=== PATIENT | female | born 1970 | race Hispanic/Latino ===

== ENCOUNTER 2022-03-23 09:45 | Day surgery (SDC) | payer BC ==
--- NOTE | 2022-03-23 09:37 | RAD REPORT ---
EXAM DESCRIPTION: Talib Blair (2 Views)03/23/2022 9:27 am CLINICAL HISTORY: Preop for cholecystectomy COMPARISON: 2012 FINDINGS: The lungs appear clear of acute infiltrate. The heart is normal size IMPRESSION: No acute abnormalities displayed
[2022-03-23 10:16] LABS: Absolute Lymphocytes (CBC) 1.6 K/uL (0.7-4.9); Hematocrit 43.4 % (36.0-45.0); Lymphocytes % 24.5 % (15.3-44.8); MCV 85.3 fL (80-100); MPV 8.8 fL (7.6-11.3); RBC Red Blood Cell Count 5.09 M/uL (3.86-4.86)
[2022-03-23] MEDS ORDERED: Ringers Lactate 1,000 ML IV ONE (10:20)
[2022-03-23 10:27] LABS: ALT/SGPT 28 U/L (12-78); AST/SGOT 15 U/L (15-37); Albumin 3.5 g/dL (3.4-5.0); Alkaline Phosphatase 85 U/L (45-117); Amylase 55 U/L (25-115); BUN Blood Urea Nitrogen 19 mg/dL (7-18); Bicarbonate 30 mmol/L (21-32); Bilirubin Total 0.5 mg/dL (0.2-1.0); Glomerular Filtration Rate 105 ml/min (=/>90); Glucose Level 100 mg/dL (74-106); Lipase 85 U/L (73-393); Potassium 3.8 mmol/L (3.5-5.1); Protein, Total 7.2 g/dL (6.4-8.2); Sodium Level 139 mmol/L (136-145)
[2022-03-23] MEDS ORDERED: ONDANSETRON 4 MG/2 ML VIAL ONE (10:28)
[2022-03-23] MEDS ORDERED: ROCURONIUM 50 MG/5 ML VIAL IV ONE (10:28)
[2022-03-23] MEDS ORDERED: propofoL 200 MG/20 ML VIAL IV ONE (10:28)
[2022-03-23] MEDS ORDERED: MIDAZOLAM HCL 2 MG/2 ML INJ ONE (10:28)
[2022-03-23] MEDS ORDERED: FENTANYL CITR 100 MCG/2 ML ONE ×2 (10:28→11:26)
[2022-03-23] MEDS ORDERED: LIDOCAINE 2% MPF 5 ML VIAL ONE ×2 (10:29→10:32)
[2022-03-23 10:31] LABS: Bilirubin Direct < 0.1 mg/dL (0-0.2)
[2022-03-23] MEDS ORDERED: CIPROFLOXACIN 400mg IV 400 MG/200 ML BAG IV ONE (11:17)
[2022-03-23] MEDS ORDERED: KETOROLAC 30 MG/ML INJ ONE (11:39)
[2022-03-23] MEDS ORDERED: EPHEDRINE SULF 50 MG/ML VIAL ONE (11:49)
[2022-03-23] MEDS ORDERED: GLYCOPYRROLATE 0.2 MG/ML SYR ONE ×2 (12:02→12:15)
[2022-03-23] MEDS ORDERED: NEOSTIGMINE 1 MG/ML -5 ML ONE (12:16)
--- NOTE | 2022-03-23 12:23 | P.BOP ---
Preoperative diagnosis: RUQ abd pain, biliary dyskinesia, cholecystitis Postoperative diagnosis: same, RUQ and RLQ intrabdominal adhesions Primary procedure: 1. Laparoscopic cholecystectomy Secondary procedure: 2. Laparoscopic lysis of adhesions Consultant Technology: Joann Thurston (DOULA) Estimated blood loss: <10cc Specimen: gb Findings: see dicta Anesthesia: General Complications: None Transferred to: Recovery Room Condition: Good
[2022-03-23] MEDS: HYDROMORPHONE HCL 1 MG/ML INJ ONE ×2 (12:46→12:52)
[2022-03-23] MEDS ORDERED: HYDROCODONE/APAP 7.5/325 MG TAB ONE (14:15)
[2022-03-23 16:06] VITALS: BP 105/61; TEMP 97.6; O2SAT 95
--- NOTE | 2022-03-23 19:01 | EKG ---
Test Date: 2022-03-23 Test Time: 09:28:41 Tailings Worker: SINGH MEASUREMENT RESULTS: Intervals: Rate: 57 AR: 158 QRSD: 82 QT: 432 QTc: 420 Valera: P: 47 AR: 158 QRS: 14 T: 60 INTERPRETIVE STATEMENTS: Sinus bradycardia Otherwise normal ECG No previous ECG available for comparison Electronically Signed On 03-23-22 19:00:21 FIELD ARTILL[employer] CREWMEMBER by Ian Steen
--- NOTE | 2022-03-24 00:27 | OP ---
Date of Procedure: 03/23/2022 Surgeon: Michael Berg MD Tradeshow Worker: VENANCIO Soler. Preoperative Diagnoses: Right upper quadrant abdominal pain, cholecystitis, and biliary dyskinesia. Postoperative Diagnoses: Right upper quadrant abdominal pain, cholecystitis, biliary dyskinesia, rig ht upper quadrant and right lower quadrant intraabdominal adhesions. Procedures: 1.Laparoscopic cholecystectomy. 2.Laparoscopic lysis of adhesions. Estimated Blood Loss: Less than 10 cc. Specimen: Gallbladder. Findings: Patient has findings on the gallbladder consistent with cholecystitis, but she also has on the right upper quadrant, intraabdominal adhesions of unknown origin. The bowel seems to be intact in that area. The right lower quadrant and mid abdomen show previous adhesions. Apparently, she had an open appendectomy done in the past and could be the cause for that. These adhesions were removed after we finished the cholecystectomy with the help of LigaSure. Complications: None. Indication: This is a case of a 51-year-old patient who comes to us with abdominal pain mainly in th e right upper quadrant. She had extensive workup done that include also a HIDA scan showing biliary dyskinesia. The benefits, alternatives, and risks of laparoscopic and possible open cholecystectomy were fully explained which include, but are not limited to infection, bleeding, damage to adjacent st ructures, anesthesia complication, choledocholithiasis, bile leak, pancreatitis, SD, and even . She also understands this may not relieve symptoms and she might need more than one surgical interve ntion. She understood and signed a consent. Procedure In Detail: The patient was brought to the operating room and placed in supine position. A nesthesia was done without complication. Abdominal area was prepped and draped in usual sterile fash ion. Marcaine 0.5% was injected for local anesthetic followed by sharp incision of the skin in the i nfraumbilical region. Incision was carried down to fascia, which was opened under direct vision. Pe ritoneum was encountered and opened under direct vision. Vicryl #1 placed inside the fascia. Richard trocar was carefully introduced and pneumoperitoneum was obtained. I placed 3 more trocars, 5 mm ea ch one of them, 1 in the epigastric area and 2 in the right upper quadrant under direct visualization . This allowed me to put a grasper in the fundus of the gallbladder and another grasper in the infun dibulum, retracting the gallbladder in the inferolateral fashion exposing the triangle of Calot and o btaining critical view. Before that I have to mention that patient has multiple adhesions in the rig ht upper quadrant. We are going to address that issue once we get the gallbladder out and also some adhesions found also in the right upper quadrant. Since the patient has pain in the right upper quad rant, I believe it is fair enough to get those adhesions down. They are not supposed to be there, ma y be contributing to her problem. Once we have critical view, I proceeded to identify the cystic barrington t and cystic artery. I put 3 clips proximal, 1 clip distal, and ligation in middle and same was done with the cystic artery. No bile leak. No bleeding. The gallbladder was removed from liver using B ovie cauterizer and removed from abdominal cavity using an Endo Catch through the umbilical incision. The area in the right upper quadrant was once again inspected and the clips were intact, no bleedin g and no bile leak. At that moment I proceeded to the Harmonic scalpel and proceeded to do the adhes ions in the right upper quadrant. There was tenting of the large bowel against the abdominal wall, b ut we were able to remove adhesions without causing any enterotomies. Then also we went to the right lower quadrant where we had the same situation with adhesions pulling the intestines up. We were ab le to release them without causing any enterotomy. This was done with the help of LigaSure. The are a was inspected, no bleeding. At that moment, I proceeded to remove the trocars under direct vision, deflated pneumoperitoneum, closed the fascia with #1 Vicryl, irrigated subcutaneous tissue and close d that with 3-0 chromic and skin in a subcuticular fashion with 3-0 chromic and Steri-Strips on top. Sponge count and instrument counts correct. Patient tolerated the procedure well. Patient was sent to [facility] very in stable condition. HM/MODL Voice ID: [id number] Report ID: [id number]
--- NOTE | 2022-03-24 00:27 | DS ---
Date of Discharge: 03/23/2022 Diagnoses: Cholecystitis, biliary dyskinesia, right upper quadrant abdominal pain, and right upper q uadrant and right lower quadrant intraabdominal adhesions. Procedures: Laparoscopic cholecystectomy and laparoscopic lysis of adhesions. Disposition: Home. Activity: As tolerated. No heavy lifting. Follow Up: In my office in 1 week. Call for appointment on [phone]. Discharge Instructions: Keep area dry for 48 hours, then may shower. Keep Steri-Strip intact. KIARRA/CARA Voice ID: [id number] Report ID: [id number]
== END 2022-03-23 14:30 | disposition home or self-care (01) ==
LOC: OR 09:45
PROVIDERS: ATTEND Surgery
PROC: 0FT44ZZ Resection of Gallbladder, Percutaneous Endoscopic Approach (ICD-10-PCS; principal; 2022-03-23 11:15)
DX: K81.1 Chronic cholecystitis (principal); K66.0 Peritoneal adhesions (postprocedural) (postinfection); K82.8 Other specified diseases of gallbladder; R10.11 Right upper quadrant pain
CPT/HCPCS: 93005; 85025; 80048; 36415; 82150; 80076; 88304; 83690; 71046; 47562; J2704; J2001; J2250; J3010 ×2; J1170; J2710; J7120; J2405; J0744

== ENCOUNTER 2023-12-26 14:15 | Emergency (ER) | payer BC ==
--- OUTSIDE RECORDS SUMMARY | 2023-12-26 14:54 | XMS REPORT | Continuity of Care Document ---
Author Name Unknown Address [address] [facility] [address] [place] [address] [facility] thconnect Address [address] [facility]. [address] [place] [address] Care Team Providers Care Equal Opportunity Specialist Name Role Phone PCP, PATIENT DOES NOT HAVE A Primary Care Physic julio Unavailable Samantha Stratton Attending Clinician UnavailShar Teixeira DO Attending Clinician Mei Hui Attending Clinician [phone] Mei ESPARZA Attending Clinician Unavailable Samantha Stratton Admitting Clinician Unavailrobyn rodriguez Payers Payer Name Policy Type Policy Number Effective Date Expirati on Date Source Allergies, Adverse Reactions, Alerts Allergy Name Allergy Type Status Severity Reaction(s) Onset Date Inactive Date Treating Clinician Comments Source Penicill ins Drug Allergy Active Other - See comments 05-30 00:00: 00 Childhood reaction [facility] PENICILL INS Drug Class Active Low Other-Cmnt 05-30 00:00: 00 [facility] Penicill ins DA Active U 3 00:00: 00 [facility] Penicill ins DA Active U UNKNOWN REACTION A CHILD 3 00:00: 00 [facility] NO KNOWN ALLERGIE S Drug Class Active [facility] Social History Social Habit Start Date Stop Date Quantity Comments Source Sexual orientation U [facility] Sex Assigned At 1970 00:00:00 1970 00:00:00 [facility] Smoking Status Start Date Stop Date Source Tobacco smoking consumption unknown [facility] Medications Ordered Medication Name Filled Medication Name Start Date Stop Date Current Medication? Ordering Clinician Indication Dosage Frequency Signature (SIG) Comments Components Source benzonatate (TESSALON PERLES) capsule 200 mg 05-30 20:45: 00 05-30 20:44 :00 No 200mg 200 mg, Oral, ONCE, 1 dose, On Mon05/30/23 at 1445, АЛЕКСАНДР [facility] ibuprofen (IBU) tablet 600 mg 05-30 20:45: 00 05-30 20:44 :00 No 600mg 600 mg, Oral, ONCE, 1 dose, On Mon05/30/23 at 1445, АЛЕКСАНДР [facility] ondansetron (ZOFRAN-ODT ) disintegrat ing tablet 4 mg 05-30 20:30: 00 05-30 19:39 :00 No 4mg 4 mg, Oral, ONCE, 1 dose, On Mon05/30/23 at 1430, Routine [facility] benzonatate 200 mg capsule 05-30 00:00: 00 Yes [id number] 200mg Take 1 capsule by mouth 3 (three) times daily as needed for Cough for up to 20 doses. [facility] ondansetron 4 mg disintegrat ing tablet 05-30 00:00: 00 Yes [id number] 4mg Take 1 tablet by mouth every 8 (eight) hours as needed for Nausea and Vomiting (N/V). [facility] ibuprofen 600 mg tablet 05-30 00:00: 00 Yes [id number] 600mg Take 1 tablet by mouth every 6 (six) hours as needed for Pain (scale 4-6). [facility] Vital Signs Vital Name Observation Time Observation Value Comments S rosaline Systolic blood pressure 2023-05-30 19:33:00 96 mm[Hg] [facility] Diastolic blood pressure 2023-05-30 19:33:00 69 mm[Hg] [facility] Heart rate 2023-05-30 19:33:00 94 /min General acute hospital Body temperature 2023-05-30 19:33:00 38 [facility] Respiratory rate 2023-05-30 19:33:00 16 /min [facility] Body height 2023-05-30 19:33:00 149.9 cm [facility] Body weight 2023-05-30 19:33:00 79.379 kg [facility] BMI 2023-05-30 19:33:00 35.35 kg/m2 [facility] Oxygen saturation in Arterial blood by Pulse oximetry 2023-05-30 19:33:00 96 /min [facility] Procedures Procedure Date / Time Performed Performing Clinicia n Source RAPID INFLUENZA A/B 2023-05-30 19:39:00 [facility] COVID-19 (ID NOW RAPID TESTING) 2023-05-30 19:39:00 [facility] NOTICE OF PRIVACY PRACTICES 2023-05-30 19:27:38 Doctor Unassigned, [facility] CONSENT/REFUSAL FOR DIAGNOSIS AND TREATMENT 2023-05-30 19:25:37 Doctor Unassigned, [facility] Encounters Start Date/Time End Date/Time Encounter Type Admission Type Attending Clinicians Care Facility Care Department Encounter ID Source 2020-07-15 09:06:46 Inpatient Samantha Chaudhari [facility] [id number] [facility] Benoit camejo [facility] 2023-12-12 08:17:33 2023-12-12 08:17:33 Outpatient [facility] [id number] Chuck Turner 2023-12-11 17:10:14 2023-12-11 17:10:14 Outpatient [facility] [id number] Chuck Turner 2023-07-03 08:34:53 2023-07-03 08:34:53 Outpatient [facility] [id number] Chuck Turner 2023-06-15 14:12:34 2023-06-15 14:12:34 Outpatient [facility] [id number] Chuck Turner 2023-05-30 13:37:00 2023-05-30 14:47:00 Emergency GeeShar Mei Esparza [facility] [id number] [facility] 2023-05-30 13:37:00 2023-05-30 14:47:00 Emergency X Mei ESPARZA [facility] ERT [id number] [facility] Results Test Description Test Time Test Comments Results Result Co mments Source LIPID [id number] 05:05:57* Test Item Value Reference Range Interpretation Comme nts CHOLESTEROL (test code = 2210) 241 MG/DL <200 H TRIGLYCERIDES (test code = 2232) 138 MG/DL <150 HDL CHOLESTEROL (test code = 2220) 54 MG/DL >39 CALC LDL CHOL (test code = 2237) 160 MG/DL <100 H NOTE: CALCULATED LDL IS BASED ON CARLOS A-CHUNG METHOD WHICHINCLUDES ADJUSTABLE TRIGLYCERIDE:VLDL CHOLESTEROL RATIO.THIS FACTOR VARIES BY MEASURED TRIGLYCERIDE AND NON-HDLCHOLESTEROL CONCENTRATIONS WITH INCREASED CALCULATED LDL SEENIN HIGHER TRIGLYCERIDE OR LOWER NON-HDL SPECIMENS. FOR MOREINFORMATION, SEE CLIENT ANNOUNCEMENT AT [email or web address] RISK RATIO LDL/HDL (test code = 2238) 2.96 RATIO <3.22 [id number] 06:48:32* Test Item Value Reference Range Interpretation Comme nts AMYLASE (test code = 2205) 66 U/L 28-100 [id number] 06:48:32* Test Item Value Reference Range Interpretation Comme nts LIPASE (test code = 2058) 18 U/L 13-60 UNLESS OTHERWISE INDICATED, ALL TESTING PERFORMED AT [facility] [address] [place] [id number] PACKING SUPERVISOR: ASHLEY RODRIGUEZ M.D. CLIA NUMBER [id number] [facility] [place]. [id number] COMPREHENSIVE METABOLIC [id number] 05:35:00* Test Item Value Reference Range Interpretation Comme nts GLUCOSE (test code = 7) 85 MG/DL 70-99 BUN (test code = 2207) 7 MG/DL 6-20 CREATININE (test code = 2213) 0.69 MG/DL 0.60-1.30 eGFR (2020 CKD-EPI) (test code = 86592) 104 ML/MIN/1.73 >60 CALC BUN/CREAT (test code = 2234) 10 RATIO 6-28 SODIUM (test code = 2230) 142 MEQ/L 133-146 POTASSIUM (test code = 2227) 3.9 MEQ/L 3.5-5.4 CHLORIDE (test code = 2214) 105 MEQ/L 95-107 CARBON DIOXIDE (test code = 6) 27 MEQ/L 19-31 CALCIUM (test code = 2208) 8.9 MG/DL 8.5-10.5 PROTEIN, TOTAL (test code = 2228) 6.5 G/DL 6.1-8.3 ALBUMIN (test code = 2200) 4.3 G/DL 3.5-5.2 CALC GLOBULIN (test code = 2240) 2.2 G/DL 1.9-3.7 CALC A/G RATIO (test code = 223) 2.0 RATIO 1.0-2.6 BILIRUBIN, TOTAL (test code = 2206) 0.3 MG/DL <=1.2 ALKALINE PHOSPHATASE (test code = 2203) 75 U/L 40-132 AST (test code = 2217) 15 U/L 9-40 ALT (test code = 2219) 17 U/L 5-40 HEMOGLOBIN [id number] 02:57:19* Test Item Value Reference Range Interpretation Comme [facility] HEMOGLOBIN A1c (test code = 44346) 5.7 % 4.2-5.6 H [employer] GUIDELINES FOR HGB A1C: PREDIABETES/INCREASED RISK . . . . . . . 5.7-6.4% DIAGNOSIS OF DIABETES . . . . . . . . . >=6.5% WITH CONFIRMATION OR APPROPRIATE SYMPTOMS NOTE: ASSAY MAY BE AFFECTED BY HEMOGLOBINOPATHIES (SICKLE CELL ANEMIA, S-C DISEASE, OTHERS) OR ARTIFICIALLY LOWERED BY DECREASED RED CELL SURVIVAL (HEMOLYTIC ANEMIAS, BLOOD LOSS, ETC.). CONSIDER ALTERNATE TESTING OR LABORATORY CONSULTATION. CBC W/AUTO DIFF WITH [id number] 01:28:56* Test Item Value Reference Range Interpretation Comme nts WBC (test code = 1001) 6.7 K/UL 3.5-11.0 RBC (test code = 1002) 5.13 M/UL 3.80-5.40 HEMOGLOBIN (test code = 1003) 13.0 G/DL 11.5-15.5 HEMATOCRIT (test code = 1004) 41.6 % 34.0-45.0 MCV (test code = 1005) 81.1 fL 80.0-99.0 MCH (test code = 1006) 25.3 PG 25.0-33.0 MCHC (test code = 1007) 31.3 G/DL 31.0-36.0 RDW (test code = 1038) 14.4 % 11.5-15.0 NEUTROPHILS (test code = 1008) 64.0 % LYMPHOCYTES (test code = 1010) 26.6 % MONOCYTES (test code = 1011) 7.1 % EOSINOPHILS (test code = 1012) 1.5 % BASOPHILS (test code = 1013) 0.4 % IMMATURE GRANULOCYTES (test code = 1036) 0.4 % NUCLEATED RBCS (test code = 1065) 0.0 /100 WBC'S See_Comment [Automated [employer]] The system which generated this result transmitted reference range: 0.0. The reference range was not used to interpret this result as normal/abnormal. PLATELET COUNT (test code = 1015) 344 K/UL 130-400 ABSOLUTE NEUTROPHILS (test code = 1066) 4.30 K/UL 1.50-7.50 ABSOLUTE LYMPHOCYTES (test code = 1067) 1.79 K/UL 1.00-4.00 ABSOLUTE MONOCYTES (test code = 1068) 0.48 K/UL 0.20-1.00 ABSOLUTE EOSINOPHILS (test code = 1040) 0.10 K/UL 0.00-0.50 ABSOLUTE BASOPHILS (test code = 1069) 0.03 K/UL 0.00-0.20 ABS IMMATURE GRANULOCYTES (test code = 1020) 0.03 K/UL 0.00-0.10 ABS NUCLEATED RBCS (test code = 91091) 0.00 K/UL 0.00-0.11 CULTURE, [id number] 10:40:05SPECIMEN NUMBER: [id number] CULTURE, URINE SPECIMEN NUMBER: [id number] SPECIMEN COMMENT: URINE SOURCE: URINE REPORT STATUS: FINAL FINAL REPORT: 09/26/2021 50-100,000 CFU/ML MIXED UROGENITAL GUANAKO COMPREHENSIVE METABOLIC [id number] 05:03:33* Test Item Value Reference Range Interpretation Comme nts GLUCOSE (test code = 7) 78 MG/DL 70-99 BUN (test code = 220) 16 MG/DL 6-20 CREATININE (test code = 2213) 0.70 MG/DL 0.60-1.30 eGFR (2020 CKD-EPI) (test code = 09109) 105 ML/MIN/1.73 >60 CALC BUN/CREAT (test code = 2235) 23 RATIO 6-28 SODIUM (test code = 223) 144 MEQ/L 133-146 POTASSIUM (test code = 2228) 4.3 MEQ/L 3.5-5.4 CHLORIDE (test code = 2215) 105 MEQ/L 95-107 CARBON DIOXIDE (test code = 2206) 28 MEQ/L 19-31 CALCIUM (test code = 2209) 9.6 MG/DL 8.5-10.5 PROTEIN, TOTAL (test code = 2229) 7.1 G/DL 6.1-8.3 ALBUMIN (test code = 2201) 4.5 G/DL 3.5-5.2 CALC GLOBULIN (test code = 2240) 2.6 G/DL 1.9-3.7 CALC A/G RATIO (test code = 2234) 1.7 RATIO 1.0-2.6 BILIRUBIN, TOTAL (test code = 2207) 0.3 MG/DL See_Comment [Automated me ssage] The system which generated this result transmitted reference range: <=1.2. The reference range was not used to interpret this result as normal/abnormal. ALKALINE PHOSPHATASE (test code = 2204) 91 U/L 40-130 AST (test code = 2218) 17 U/L 9-40 ALT (test code = 2219) 15 U/L 5-40 UNLESS OTHERWISE INDICATED, [facility] [address] [place] [id number] PACKING SUPERVISOR: JIHAN MARIEE M.D. CLIA NUMBER [id number] [facility] [place]. [id number] CBC W/AUTO DIFF WITH [id number] 03:46:41* Test Item Value Reference Range Interpretation Comme nts WBC (test code = 1001) 8.7 K/UL 3.5-11.0 RBC (test code = 1002) 4.97 M/UL 3.80-5.40 HEMOGLOBIN (test code = 1003) 14.5 G/DL 11.5-15.5 HEMATOCRIT (test code = 1004) 41.5 % 34.0-45.0 MCV (test code = 1005) 83.5 fL 80.0-99.0 MCH (test code = 1006) 29.2 PG 25.0-33.0 MCHC (test code = 1007) 34.9 G/DL 31.0-36.0 RDW (test code = 1038) 13.3 % 11.5-15.0 NEUTROPHILS (test code = 1008) 69.9 % LYMPHOCYTES (test code = 1010) 20.5 % MONOCYTES (test code = 1011) 7.0 % EOSINOPHILS (test code = 1012) 1.5 % BASOPHILS (test code = 1013) 0.5 % IMMATURE GRANULOCYTES (test code = 1036) 0.6 % NUCLEATED RBCS (test code = 1065) 0.0 /100 WBC'S See_Comment [Automated messa ge] The system which generated this result transmitted reference range: 0.0. The reference range was not used to interpret this result as normal/abnormal. PLATELET COUNT (test code = 1015) 291 K/UL 130-400 ABSOLUTE NEUTROPHILS (test code = 1066) 6.06 K/UL 1.50-7.50 ABSOLUTE LYMPHOCYTES (test code = 1067) 1.78 K/UL 1.00-4.00 ABSOLUTE MONOCYTES (test code = 1068) 0.61 K/UL 0.20-1.00 ABSOLUTE EOSINOPHILS (test code = 1040) 0.13 K/UL 0.00-0.50 ABSOLUTE BASOPHILS (test code = 1069) 0.04 K/UL 0.00-0.20 ABS IMMATURE GRANULOCYTES (test code = 1020) 0.05 K/UL 0.00-0.10 ABS NUCLEATED RBCS (test code = 27142) 0.04 K/UL 0.00-0.11 [id number] 06:37:00* Test Item Value Reference Range Interpretation Comme nts GLUBED (test code = GLUBED) 101 mg/dL 70-110 N COVID 19 Asymptomatic IH [id number] 12:34:00* Test Item Value Reference Range Interpretation Comme nts COVID 19 Asymptomatic IH AG (test code = COVNONPUIAG) NEGATIVE NEGATIVE Negative results should be treated as presumptive and ifinconsistent with clinical signs and symptoms, or necessaryfor patient management, should be tested with an alternativemolecular assay. Negative results do not preclude [id number]-[id number] and should not be used as the sole basis forpatient management decisions. Negative results should beconsidered in the context of a patient's recent exposures,history, presence of clinical signs and symptoms consistentwith COVID-19. Specimen comments: If not done this admission Notes Date/Time Note Provider Source 2023-05-30 14:45:00 PT D/C home. GCS15, VS stable. Given D/C paperwork. Pt ambulatory at time of discharge. Pt educated on med usage, follow up care, s/s worsening condition, need for hydration. Pt verbalized understanding. Pt ambulated from ED in [facility] 2023-05-30 13:32:08 Pt states "I feel weak, achy and flu symptoms" [facility] 2023-05-30 13:29:38 Called for patient from waiting room, no response. [facility] 2020-07-17 06:53:00 [id number] [address] PATIENT NAME: ASHOK HERNANDEZ ADMIT DATE: 07/17/20 ACCOUNT NO: [id number] DISCHARGE DATE: ROOM NO: REPORT TYPE: ENDOSCOPY REPORT DATE OF : [birth year] AGE: 49 SEX: F ADMITTING PHYSICIAN: ATTENDING PHYSICIAN:Samantha Stratton MD [facility] Patient Name: Ashok Hernandez Procedure Date: 07/17/2020 6:53 AM Date of : 1970 Admit Type: Outpatient Age: 49 Gender: Female Attending MD: Samantha Stratton MD Procedure: Colonoscopy Indications: Screening for colorectal malignant neoplasm Providers: Samantha Stratton MD (Doctor) Referring MD: Requesting Provider: Medicines: General Anesthesia Procedure: Pre-Anesthesia Assessment: - Prior to the procedure, a History and Physical was performed, and patient medications and allergies were reviewed. The patient's tolerance of previous anesthesia was also reviewed. The risks and benefits of the procedure and the sedation options and risks were discussed with the patient. All questions were answered, and informed consent was obtained. Prior Anticoagulants: The patient has taken no previous anticoagulant or antiplatelet agents. ASA Grade Assessment: II - A patient with mild systemic disease. After reviewing the risks and benefits, the patient was deemed in satisfactory condition to undergo the procedure. After I obtained informed consent, the scope was passed under direct vision. Throughout the procedure, the patient's blood pressure, pulse, and oxygen saturations were monitored continuously. The [id number] Colonoscope was introduced through the anus and advanced to the cecum, identified by appendiceal orifice and ileocecal valve. The colonoscopy was performed without difficulty. The patient tolerated the procedure well. The quality of the bowel preparation was good. Findings: The perianal and digital rectal examinations were normal. Pertinent PATIENT NAME: ASHOK HERNANDEZ negatives include normal sphincter tone. A few small and large-mouthed diverticula were found in the sigmoid colon, descending colon and splenic flexure. There was no evidence of diverticular bleeding. The exam was otherwise without abnormality. Complications: No immediate complications. Estimated Blood Loss: Estimated blood loss: none. Impression: - Mild diverticulosis in the sigmoid colon, in the descending colon and at the splenic flexure. There was no evidence of diverticular bleeding. - The examination was otherwise normal. - No specimens collected. Recommendation: - Repeat colonoscopy in 5 years for surveillance. Procedure Code(s): --- Professional --- 50857, Colonoscopy, flexible; diagnostic, including collection of specimen(s) by brushing or washing, when performed (separate procedure) CPT copyright 2018 [employer]. All rights reserved. The codes documented in this report are preliminary and upon calender operator helper review may be revised to meet current compliance requirements. Samantha Stratton MD Samantha Stratton MD 07/17/2020 7:37:56 AM This report has been signed electronically. Number of Addenda: 0 Note Initiated On: 07/17/2020 6:53 AM Provation {[id number]}.pdf ProVation FT PDF at 0738 PATIENT NAME: ASHOK HERNANDEZ [facility] 2020-07-15 11:55:[address] [place] [address] ELECTROCARDIOGRAM Patient: ASHOK HERNANDEZ Unit #: [id number] Sex/Age: F 49 : 70 Admit Date: Location: [facility] Physician: Samantha Stratton MD Room/Bed: Order: [id number] Test Reason : PREOP Test Date/Time Stamp: MonJul 15 2020 11:55:43 Blood Pressure : / mmHG Vent. Rate : 065 BPM Atrial Rate : 065 BPM P-R Int : 162 ms QRS Dur : 082 ms QT Int : 374 ms P-R-T Axes : 043 -07 024 degrees QTc Int : 388 ms Normal sinus rhythm Cannot rule out Anterior infarct (cited on or before 15-JUL-2020) Abnormal ECG When compared with ECG of 15-JUL-2020 11:55, (Unconfirmed) Serial changes of evolving Anterior infarct present Confirmed by JOSE GUADALUPE EVANS MD ([id number]) on 07/16/2020 1:42:20 PM Referred By: Samantha Stratton Confirmed by:JOSE GUADALUPE EVANS MD at 1342 dd/t: 07/15/20 1155 [facility]
[2023-12-26 15:06] LABS: Absolute Lymphocytes (CBC) 1.1 K/uL (0.7-4.9); Absolute Monocytes 0.8 K/uL (0.1-1.3); Absolute Neutrophil 8.5 K/uL (1.8-8.0); Basophils % 0.1 % (0-1.3); Eosinophils % 0.2 % (0-4.4); Hematocrit 48.1 % (36.0-45.0); Hemoglobin 15.4 g/dL (12.0-15.0); Lymphocytes % 10.8 % (15.3-44.8); MCV 84.4 fL (80-100); MPV 9.1 fL (7.6-11.3); Monocytes % 7.5 % (3.3-12.3); Neutrophils % 81.4 % (41.7-73.7); Platelets 410 thou/uL (152-406); Red Cell Distribution Width 16.9 % (12.1-15.2)
[2023-12-26 15:20] LABS: Specific Gravity > 1.030 (1.005-1.030); Urine Bacteria None Seen /HPF (<20); Urine Bilirubin NEGATIVE (Negative); Urine Blood Negative (Negative); Urine Clarity Extremely Turbid (Clear); Urine Color Yellow (Yellow); Urine Culture Reflex Order NOT NEEDED; Urine Glucose NEGATIVE (Negative); Urine Ketones 4+ (Over) (Negative); Urine Microscopic Reflex YN ORDER UMIC; Urine Mucus 2+ /HPF (None Seen); Urine Nitrite NEGATIVE (Negative); Urine Protein 2+ (Negative); Urine RBC <5 /HPF (None Seen); Urine Urobilinogen 1+ (Normal); Urine WBC <5 /HPF (<5); Urine Yeast (Budding) Trace /HPF (None Seen); Urine pH 6.5 (5.0-7.0)
[2023-12-26 15:26] LABS: Albumin 3.5 g/dL (3.4-5.0); Albumin/Globulin Ratio 0.8 (1.1-1.8); Anion Gap 16.1 mEq/L (5.0-15.0); Bilirubin Total 0.6 mg/dL (0.2-1.0); Globulin 4.3 g/dL (2.3-3.5); Potassium 3.1 mEq/L (3.5-5.1); Protein, Total 7.8 g/dL (6.4-8.2)
[2023-12-26] MEDS ORDERED: ONDANSETRON 4 MG/2 ML VIAL ONE (16:08)
[2023-12-26] MEDS ORDERED: NA CHLORIDE 0.9% 1,000 ML ONE (16:08)
[2023-12-26] MEDS ORDERED: MORPHINE 4 MG/ML SYR ONE ×2 (16:22→17:34)
--- NOTE | 2023-12-26 17:59 | RAD REPORT ---
EXAM DESCRIPTION: CT - Abdomen Pelvis W Contrast - 12/26/2023 5:10 pm CLINICAL HISTORY: 2 weeks s/p gastric bypass, vomiting;Abd pain COMPARISON: Abdomen Pelvis W Contrast dated 02/09/2022 TECHNIQUE: Thin cut axial CT imaging of the abdomen and pelvis was performed following intravenous a dministration of iodinated contrast. Multiplanar reformats were generated and reviewed. All CT scans are performed using dose optimization technique as appropriate and may include automated exposure control or mA/KV adjustment according to patient size. FINDINGS: No suspicious findings in the lung bases. The liver, spleen, adrenal glands, and pancreas show no suspicious findings. Gallbladder was surgical ly removed. Symmetric renal function is seen with no hydronephrosis or suspicious renal mass. Sequelae of Kamala-en-Y gastric bypass. Marked fluid distention with air-fluid levels involving the exc luded portion of the stomach and extending along the duodenum and proximal jejunum to the level of th e jejunojejunostomy in the left upper quadrant, although the anastomosis with the upstream limb appea rs patent at that level, see axial image 34. Decompressed small bowel along the efferent limb. No seg mental bowel wall thickening. No free air, free fluid or inflammatory stranding. No hernia, mass or b ulky lymphadenopathy. The urinary bladder is without significant finding. No suspicious bony findings. IMPRESSION: Marked fluid distention with air-fluid levels involving the excluded portion of the stom ach and extending along the duodenum and proximal jejunum to the level of the jejunojejunostomy, with decompressed small bowel along the afferent limb. Findings are concerning for efferent loop obstruct ion, probably complete, less likely partial. The findings were communicated to Dr Corbin on 12/26/2023 at 17:55 hours.
--- NOTE | 2023-12-26 18:05 | EDPHYS ---
Physician Documentation [facility] Name: Idania Hernandez Age: 53 yrs Sex: Female : 1970 Arrival Date: 12/26/2023 Time: 14:15 Bed 11 Private MD: ED Physician Tyler Corbin HPI: 12/25 14:49 This 53 yrs old Female presents to ER via Ambulatory with complaints of rn Gastricbypass surgery two weeks ago, Vomiting. 14:49 The patient presents to the emergency department with vomiting, abdominal pain. Onset: rn The symptoms/episode began/occurred 10 day(s) ago. Possible causes: Patient had a gastric bypass surgery performed in [place] 10 days ago. The symptoms are aggravated by P.o. intake, movement. The symptoms are alleviated by nothing. Associated signs and symptoms: Pertinent positives: abdominal pain, Pertinent negatives: fever, GI bleeding. Severity of symptoms: At their worst the symptoms were moderate in the emergency department the symptoms have improved. 53-year-old female with past medical history of diverticulitis, depression presents to the emergency department complaining of vomiting. Patient states that she had a gastric bypass surgery performed in [place] 10 days ago and has had persistent nausea, vomiting, and abdominal discomfort since the surgery and now feels very dehydrated. She states that she has been unable to progress her diet and is still unable to hold down water and medication without vomiting. Patient additionally states that she feels she is developing a UTI and reports burning with urination for the past day. Denies fevers, chills, syncope, chest pain, shortness of breath.. PROGRAM MANAGEMENT MANAGER: 18:26 LMP N/A - Post-menopause, Not me1 Historical: - Allergies: 14:38 PENICILLINS; db - PMHx: 14:38 depressive disorder; Diverticulitis; db - PSHx: 14:38 GASTRIC BYPASS; db - Immunization history:: Adult Immunizations unknown. - Infectious Disease History:: Denies. - Social history:: Smoking status: Patient denies any tobacco usage or history of. ROS: 15:02 Constitutional: Negative for fever, chills. Cardiovascular: Negative for chest pain, rn palpitations, and edema, Respiratory: Negative for shortness of breath, cough, wheezing, and pleuritic chest pain, Skin: Negative for injury, rash, and discoloration, Neuro: Negative for numbness, tingling. 15:06 Constitutional: Positive for rn 15:06 Abdomen/GI: Positive for abdominal pain, nausea, vomiting, Negative for constipation, dysphagia, hematemesis, black/tarry stool, 15:06 Back: Negative for radiated pain, 15:06 : Positive for urinary symptoms, burning with urination, Negative for hematuria, bladder incontinence, 15:06 Skin: 15:06 Skin: Negative for cellulitis, erythema, rash, swelling, ulceration, 15:06 All other systems are negative, Exam: 15:09 Constitutional: This is a well developed, well nourished patient who is awake and rn alert but appears uncomfortable. Cardiovascular: Regular rate and rhythm. No pulse deficits. Respiratory: No increased work of breathing, no retractions or nasal flaring. Abdomen/GI: soft, + epigastric tenderness, no rebound or distension Vital Signs: 14:35 BP 130 / 74; Pulse 103; Resp 18; Temp 98.5; Pulse Ox 96% ; Weight 72.57 kg; Height 4 db ft. 11 in. ; 16:30 BP 131 / 75; Pulse 85; Resp 16; Pulse Ox 97% on R/A; me1 17:42 BP 148 / 76; Pulse 96; Resp 16; Pulse Ox 100% on R/A; me1 18:22 BP 161 / 96; Pulse 99; Resp 16; Pulse Ox 97% on R/A; me1 19:11 BP 135 / 92; Pulse 94; Resp 15; Pulse Ox 97% on R/A; me1 14:35 Body Mass Index 32.32 (72.57 kg, 149.86 cm) db MDM: 14:24 Patient medically screened. rn 17:59 Differential diagnosis: Nonspecific abd pain, volvulus, obstruction, adhesions, rn complications. 18:00 Data reviewed: vital signs, nurses notes, lab test result(s), radiologic studies, CT rn scan, and as a result, I will admit patient. Consideration of Admission/Observation Patient was admitted/placed on observation. Escalation of care including admission/observation considered. 18:01 Care significantly affected by the following chronic conditions:. Counseling: I had a rn detailed discussion with the patient and/or guardian regarding the historical points, exam findings, and any diagnostic results supporting the discharge/admit diagnosis, lab results, radiology results, the need for further work-up and treatment in the hospital, the need to transfer to another facility, for higher level of care, [facility] does not immediately have the required specialist. Response to treatment: the patient's symptoms have mildly improved after treatment, and as a result, I will admit patient. ED course: Patient accepted for transfer to [facility], accepted by bariatric surgery. They requested lactated ringer bolus. Patient overall doing better and no further emesis here.. 12/25 14:48 Order name: CBC with Diff; Complete Time: 15:12 rn 12/25 14:48 Order name: CMP; Complete Time: 15:27 rn 12/25 14:48 Order name: Lipase; Complete Time: 15:27 rn 12/25 14:48 Order name: Urinalysis w/ reflexes; Complete Time: 15:27 rn 12/25 14:48 Order name: CT Abd/Pelvis - IV Contrast Only; Complete Time: 18:04 rn 12/25 14:48 Order name: IV Saline Lock; Complete Time: 15:02 rn 12/25 14:48 Order name: Labs collected and sent; Complete Time: 15:02 rn Administered Medications: 16:14 Drug: NS 0.9% IV 1000 ml IV at 1 bolus Per protocol; 1000 mL bolus Route: IV; Rate: 1 db bolus; Site: left antecubital; 18:22 Follow up: Response: No adverse reaction; IV Status: Completed infusion; IV Intake: me1 1000ml 16:14 Drug: Ondansetron IVP 4 mg IVP once; over 2 minutes Route: IVP; Site: left antecubital; db 16:57 Follow up: Response: No adverse reaction; Nausea is decreased me1 16:28 Drug: morphine IVP or IV 4 mg IVP once over 4 mins Route: IVP; Infused Over: 4 mins; me1 Site: left antecubital; 16:57 Follow up: Response: No adverse reaction; Pain is decreased me1 17:35 Drug: morphine IVP or IV 4 mg IVP once over 4 mins Route: IVP; Infused Over: 4 mins; me1 Site: left antecubital; 18:12 Follow up: Response: No adverse reaction; Pain is unchanged, physician notified me1 18:21 Drug: Lactated Ringers Solution IV 1000 ml IV at 1 bolus bolus Route: IV; Rate: 1 me1 bolus; Site: left antecubital; 19:15 Follow up: IV Status: Infusion continued upon transfer me1 18:21 Drug: HYDROmorphone IVP 1 mg IVP once Route: IVP; Site: left antecubital; me1 19:14 Follow up: Response: No adverse reaction; Pain is decreased me1 Disposition Summary: 12/26/23 18:04 Transfer Ordered Notes: Transfer Location: [facility] rn Reason: Higher level of care rn Condition: Stable rn Problem: new rn Symptoms: have improved rn Accepting Physician: (12/26/23 19:19) me1 Diagnosis - Other intestinal obstruction rn Forms: - Medication Reconciliation Form rn - SBAR form rn Signatures: Dispatcher [employer] Tyler Cole MD MD rn Benton, Danielle, RN RN db Eddleman, Michelle, RN RN me1 Corrections: (The following items were deleted from the chart) 16:58 15:09 Constitutional: This is a well developed, well nourished patient who is awake and rn alert but appears uncomfortable. rn 19:19 18:04 rn me1
--- NOTE | 2023-12-26 18:05 | ER ---
Nurse's Notes [facility] Name: Idania Hernandez Age: 53 yrs Sex: Female : 1970 Arrival Date: 12/26/2023 Time: 14:15 Bed 11 Private MD: Diagnosis: Other intestinal obstruction Presentation: 12/25 14:35 Chief complaint: Patient states: VOMITING X 2 WEEKS POST GASTRIC BYPASS SURGERY. db DIARRHEA AND VOMITING STATES HAD SURGERY 2 WEEKS AGO IN [place]. TODAY STARTED FEELING BURNING WITH URINATION. Coronavirus screen: Client denies travel out of the [place] in the last 14 days. At this time, the client does not indicate any symptoms associated with coronavirus-19. Ebola Screen: Patient negative for fever greater than or equal to 101.5 degrees Fahrenheit, and additional compatible Ebola Virus Disease symptoms Patient denies exposure to infectious person. No symptoms or risks identified at this time. Patient reports travel to Ebola-affected area in the 21 days before illness onset. Patient reports having traveled to: [place]. 14:35 Method Of Arrival: Ambulatory db 14:38 Initial Sepsis Screen: Does the patient meet any 2 criteria? No. Patient's initial db sepsis screen is negative. Does the patient have a suspected source of infection? No. Patient's initial sepsis screen is negative. Risk Assessment: Do you want to hurt yourself or someone else? Patient reports no desire to harm self or others. Onset of symptoms was December 26, 2023. 14:38 Acuity: KIRILL 3 db Triage Assessment: 14:38 General: Appears in no apparent distress. uncomfortable, Behavior is calm, cooperative. db Pain: Complains of pain in abdomen. Neuro: Level of Consciousness is awake, alert, obeys commands, Oriented to person, place, time, situation. GI: Reports lower abdominal pain, upper abdominal pain, diarrhea, nausea, vomiting. FAMILY DENTIST: 18:26 LMP N/A - Post-menopause, Not me1 Historical: - Allergies: 14:38 PENICILLINS; db - PMHx: 14:38 depressive disorder; Diverticulitis; db - PSHx: 14:38 GASTRIC BYPASS; db - Immunization history:: Adult Immunizations unknown. - Infectious Disease History:: Denies. - Social history:: Smoking status: Patient denies any tobacco usage or history of. Screenin:53 [facility] ED Fall Risk Assessment (Adult) History of falling in the last 3 months, me1 including since admission No falls in past 3 months (0 pts) Confusion or Disorientation No (0 pts) Intoxicated or Sedated No (0 pts) Impaired Gait No (0 pts) Mobility Assist Device Used No (0 pt) Altered Elimination No (0 pt) Score/Fall Risk Level 0 - 2 = Low Risk Maintained a safe environment, Provided non-skid footwear, Hourly rounding (assess needs \T\ fall precautionary measures) done. Abuse screen: Denies threats or abuse. Nutritional screening: No deficits noted. Tuberculosis screening: No symptoms or risk factors identified. Assessment: 16:53 General: Appears uncomfortable, ill, well groomed, well developed, well nourished, me1 Behavior is calm, cooperative, appropriate for age, Reports having gastric bypass surgery 10 days ago in [place] and has been vomiting since. Cannot hold down water, unable to advance diet as she was told to and yesterday she started having burning with urination. Pain: Complains of pain in abdomen Pain does not radiate. Pain currently is 8 out of 10 on a pain scale. Quality of pain is described as crampy, Pain began suddenly, 10 days ago Is continuous. Neuro: Level of Consciousness is awake, alert, obeys commands, Oriented to person, place, time, situation, Appropriate for age. Cardiovascular: Patient's skin is warm and dry. Respiratory: Airway is patent Respiratory effort is even, unlabored, Respiratory pattern is regular, symmetrical. GI: Reports nausea, vomiting. GI: Abdomen is round. : Reports burning with urination, since yesterday. EENT: No signs and/or symptoms were reported regarding the EENT system. Derm: Skin is intact, is healthy with good turgor, Skin is pink, warm \T\ dry. Musculoskeletal: No signs and/or symptoms reported regarding the musculoskeletal system. Vital Signs: 14:35 BP 130 / 74; Pulse 103; Resp 18; Temp 98.5; Pulse Ox 96% ; Weight 72.57 kg; Height 4 db ft. 11 in. ; 16:30 BP 131 / 75; Pulse 85; Resp 16; Pulse Ox 97% on R/A; me1 17:42 BP 148 / 76; Pulse 96; Resp 16; Pulse Ox 100% on R/A; me1 18:22 BP 161 / 96; Pulse 99; Resp 16; Pulse Ox 97% on R/A; me1 19:11 BP 135 / 92; Pulse 94; Resp 15; Pulse Ox 97% on R/A; me1 14:35 Body Mass Index 32.32 (72.57 kg, 149.86 cm) db ED Course: 14:17 Patient arrived in ED. im 14:24 Tyler Corbin MD is Attending Physician. rn 14:40 Triage completed. db 14:40 Arm band placed on Patient placed in waiting room. db 15:02 CBC with Diff Sent. bc6 15:02 CMP Sent. bc6 15:02 Lipase Sent. bc6 15:02 Urinalysis w/ reflexes Sent. bc6 15:02 Initial lab(s) drawn, by me, sent to lab. Inserted saline lock: 20 gauge in left bc6 antecubital area, using aseptic technique. Blood collected. Flushed with 10 mL NS. 16:19 Patient placed in an exam room, on a stretcher. 1 16:21 Anette Olivo, RN is Primary Nurse. me1 16:53 Patient has correct armband on for positive identification. Bed in low position. Call me1 light in reach. Side rails up X2. Provided Education on: POC. Verbalized understanding. . Client placed on continuous cardiac and pulse oximetry monitoring. NIBP monitoring applied. Pulse ox on. NIBP on. 16:53 No provider procedures requiring assistance completed. me1 17:11 CT Abd/Pelvis - IV Contrast Only In Process Unspecified. EDMS 18:25 pt accepted in transfer to [facility] rm [id number] Valentine admin approval given by ramya Cm. 18:27 Patient transferred, IV remains in place. me1 18:28 ems not able to transport pt for 2 hrs per [facility]. pilot station not able to transport bd due to being on transfer to [facility]. [facility] ems will transport pt. Administered Medications: 16:14 Drug: NS 0.9% IV 1000 ml IV at 1 bolus Per protocol; 1000 mL bolus Route: IV; Rate: 1 db bolus; Site: left antecubital; 18:22 Follow up: Response: No adverse reaction; IV Status: Completed infusion; IV Intake: ri1 1000ml 16:14 Drug: Ondansetron IVP 4 mg IVP once; over 2 minutes Route: IVP; Site: left antecubital; db 16:57 Follow up: Response: No adverse reaction; Nausea is decreased me1 16:28 Drug: morphine IVP or IV 4 mg IVP once over 4 mins Route: IVP; Infused Over: 4 mins; me1 Site: left antecubital; 16:57 Follow up: Response: No adverse reaction; Pain is decreased me1 17:35 Drug: morphine IVP or IV 4 mg IVP once over 4 mins Route: IVP; Infused Over: 4 mins; me1 Site: left antecubital; 18:12 Follow up: Response: No adverse reaction; Pain is unchanged, physician notified me1 18:21 Drug: Lactated Ringers Solution IV 1000 ml IV at 1 bolus bolus Route: IV; Rate: 1 me1 bolus; Site: left antecubital; 19:15 Follow up: IV Status: Infusion continued upon transfer me1 18:21 Drug: HYDROmorphone IVP 1 mg IVP once Route: IVP; Site: left antecubital; me1 19:14 Follow up: Response: No adverse reaction; Pain is decreased me1 Medication: 16:53 VIS not applicable for this client. me1 Intake: 18:22 IV: 1000ml; Total: 1000ml. me1 Outcome: 18:04 ER care complete, transfer ordered by . rn 18:27 Transferred by ground EMS to [facility], Transfer form completed. me1 X-rays sent w/ patient. Note: report called to IRENE Matos 18:27 Condition: stable 18:27 Instructed on the need for transfer, 19:19 Patient left the ED. me1 Signatures: Dispatcher [employer] EDMS Sonya Schmitt Roman, MD MD rn Lewis, Lynsay, RN RN 1 Gisela Craig, RN RN db Santa Padron Itzel im Eddleman, Michelle RN RN me1 Corrections: (The following items were deleted from the chart) 16:49 14:35 Chief complaint: Patient states: VOMITING X 2 WEEKS POST GASTRIC BYPASS SURGERY. me1 DIARRHEA AND VOMITING STATES HAD SURGERY 2 WEEKS AGO IN [place]. TODAY STARTED FEELING BURNING WITH URINATION. db
[2023-12-26] MEDS ORDERED: Ringers Lactate 1,000 ML IV ONE (18:16)
[2023-12-26] MEDS ORDERED: HYDROMORPHONE HCL 1 MG/ML INJ ONE (18:16)
[2023-12-26 19:57] VITALS: TEMP 98.5
[2023-12-26 20:02] VITALS: O2SAT 97
[2023-12-26 20:04] VITALS: BP 135/92
== END 2023-12-26 19:19 | disposition short-term general hospital (02) ==
LOC: ER 14:15
DX: K56.699 Other intestinal obstruction unspecified as to partial versus complete obstruction (principal); Z98.84 Bariatric surgery status
CPT/HCPCS: 85025; 81001; 36415; 83690; 80053; 74177; Q9967; J1170; J2405; J7120; J7030

== ENCOUNTER 2024-01-25 14:22 | Inpatient (IN) | payer BC ==
[2024-01-27] MEDS ORDERED: SODIUM CHLORIDE 0.9% 10ML INJ IV PRN (15:15)
[2024-01-27] MEDS: HYDROCODONE/APAP 5/325 MG TAB PO PRN (15:51)
[2024-01-27] MEDS: [UNRECOGNIZED DRUG - OTHER] IV SCH (16:14)
[2024-01-27] MEDS: ONDANSETRON 4 MG/2 ML VIAL IV PRN (16:43)
[2024-01-27 17:14] LABS: Specific Gravity 1.028 (1.005-1.030); Sqamous Epithelial <5 /HPF (None Seen); Urine Bacteria <20 /HPF (<20); Urine Bilirubin NEGATIVE (Negative); Urine Blood Negative (Negative); Urine Clarity Clear (Clear); Urine Color Yellow (Yellow); Urine Crystals Unidentified Few /HPF (None Seen); Urine Culture Reflex Order NOT NEEDED; Urine Glucose NEGATIVE (Negative); Urine Ketones TRACE (Negative); Urine Micro Reflex YN NO BILL MICROSCOPIC; Urine Mucus Slight /HPF (None Seen); Urine Nitrite NEGATIVE (Negative); Urine Protein TRACE (Negative); Urine RBC <5 /HPF (None Seen); Urine Urobilinogen Normal (Normal); Urine WBC <5 /HPF (<5)
[2024-01-27] MEDS: INSULIN REGULAR (HUMAN) 100 UNIT/ML SQ SCH (17:28)
--- NOTE | 2024-01-27 17:40 | P.HP ---
Certification for Inpatient Patient admitted to: Inpatient With expected LOS: >2 Midnights Practitioner: I am a practitioner with admitting privileges, knowledge of patient current condition, hospital course, and medical plan of care. Services: Services provided to patient in accordance with Admission requirements found in Title 42 Section 412.3 of the Code of Federal Regulations Patient History Date of Service: 01/27/24 Reason for admission: Decreased functional status History of Present Illness: Patient is a 53-year-old woman with a history of appendectomy, cholecystectomy 1 year ago. She underwent gastric bypass surgery about 1 month ago in [place]. She presented to the hospital with a complaint of nausea vomiting, dysuria and unable to keep food down. CT imaging done showed dilated bilopancreatic limb, laparoscopy was done which was converted to open revision of jejunostomy on December 26. Patient postop course was complicated by hypotension. Patient also found to have anastomotic leak, repeat exploratory laparotomy done with repair of the leak and enterotomies, abdominal washout and drain placement. Patient also had several loculated fluid collections in the abdomen and pelvis concerning for abscess which were aspirated by IR. Patient started on TPN with hand roller consultation and treated aggressively with broad-spectrum antibiotics with ID consultation. Antibiotics administered included meropenem, Flagyl, micafungin and later transitioned ceftolozane/tazobactam, flagyl and Zyvox. Patient also developed right upper extremity DVT and pulmonary embolism which is being managed with oral Eliquis. Patient is now tolerating full liquid diet, midline abdominal incision is healing, YARY drains removed. Patient noted to be severely debilitated as a result of a prolonged hospital stay including ICU. She underwent physical therapy and showed improvement in her functional status. Given patient ongoing medical issues that need multidisciplinary management and monitoring recommendations were made for patient to be transferred to inpatient rehab. Allergies Penicillins Adverse Reaction (Intermediate, Verified 01/27/24 14:49) unknown reaction Home Medications: Famotidine 20 mg PO BEDTIME 03/23/22 Pantoprazole [Protonix Tab] 40 mg PO DAILY 03/23/22 buPROPion HCL [Wellbutrin Xl] 300 mg PO BEDTIME 03/23/22 - Past Medical/Surgical History Diabetic: No -: Obesity -: Cholecystectomy -: Appendectomy -: Gastric bypass - Family History Father -: Cancer (Prostate cancer) - Social History Smoking Status: Never smoker Alcohol use: No CD- Drugs: No Place of Residence: Home Review of Systems Other: No recorded fever. Patient reports regular bowel movement. She is complaining of abdominal pain and nausea She denies any headache She denies any shortness of breath She denies any dysuria or increased urinary frequency. Except as documented, all other systems reviewed and negative. Physical Examination - Vital Signs Temperature: 98.1 F Blood Pressure: 140/59 Respirations: 20 Pulse Ox (%): 98 - Physical Exam General: Alert, In no apparent distress, Oriented x3, Obese HEENT: Atraumatic, Mucous membr. moist/pink, EOMI, Sclerae nonicteric Neck: Supple, JVD not distended Respiratory: Clear to auscultation bilaterally, Normal air movement Cardiovascular: No edema, Regular rate/rhythm, Normal S1 S2, No murmurs Capillary refill: <2 Seconds Gastrointestinal: Normal bowel sounds, Soft and benign, Other (Obese abdomen, healing midline surgical, small areas of skin opening, healing trocar wounds) Integumentary: No rashes, No erythema, No cyanosis Neurological: Normal speech, Normal strength at 5/5 x4 extr, Cranial nerves 3-12 intact Lymphatics: No axilla or inguinal lymphadenopathy Other Physical/Emotional Findings: Current Level Of Functioning: Currently, she is dependent for transfers. Dependent with eating, minimum assistance with oral hygiene, toileting needs maximal assistance. Bathing maximal assistance, upper body dressing needs moderate assistance, lower body dressing needs moderate assistance, going from sitting to standing position from bed to the chair needs all needed moderate assistance. Gait, he ambulated 220 feet with a rolling walker and moderate assistance. Assessment and Plan - Plan Rehab And Medical Assessment And Plan: Rehab Diagnosis: ICU myopathy Comorbidities: Decreased mobility, decreased physical functioning, DVT, moderate protein calorie malnutrition, pain, thrombocytopenia, afferent loop syndrome Plan Patient will have physical, and occupational for 3.5 hours, 5 of 7 days. Goals of therapy: pt will perform stand-pivot transfers independently using a RW, ambulate 250' independently using a RW, perform supine to sit transfers independently, perform car transfers independently using a RW, independent with self-care. Medical diagnosis/comorbidities DVT/pulmonary embolus Moderate protein calorie malnutrition Afferent loop syndrome Acute pain Intra-abdominal abscesses s/p drainage. Plan: Will continue Eliquis for DVT and pulmonary embolus. We will continue antibiotics-ceftolozane/tazobactam, flagyl and Zyvox to complete therapy for the intra-abdominal abscesses. Will maintain full liquid diet and supplemental nutrition with TPN. Plan to wean TPN as patient's oral intake improve. May need to curbside consultation with bariatric surgery regarding nutrition during the course of her stay.. Pain would be managed with [place] and fentanyl patch. Constipation will be treated with laxatives and stool softener Continue antihypertensive. Blood sugar will be managed with insulin sliding scale for ongoing TPN Patient will have daily physician evaluation for any ongoing medical problems as listed She will have social service evaluation and management for discharge planning, home equipment, continuing therapy and physician - Advance Directives Does patient have a Living Will: No Does patient have a Durable POA for Healthcare: No
[2024-01-27] MEDS: AA 5%/D20W/ELECTROLYTES-TPN 2,000 ML, Lipids 20% 250 ML with MULTIVITAMINS INJ 10 ML IV SCH (17:42)
[2024-01-27 18:09] VITALS: BMI 35.3
[2024-01-27] MEDS: CYCLOBENZAPRINE 10 MG TAB PO SCH (20:04)
[2024-01-27] MEDS: APIXABAN 5 MG TABLET PO SCH (20:04)
[2024-01-27] MEDS: metroNIDAZOLE 500 MG TABLET PO SCH (20:04)
[2024-01-27] MEDS: LINEZOLID 600 MG TAB PO SCH (20:04)
[2024-01-27] MEDS: PANTOPRAZOLE 40 MG INJ IVP SCH (20:06)
[2024-01-27] MEDS: SODIUM CHLORIDE 0.9% 10ML INJ IV SCH (20:06)
[2024-01-27] MEDS ORDERED: NA CHLORIDE 0.9% 250 ML ONE (22:28)
[2024-01-28 05:55] LABS: Absolute Basophils 0.1 K/uL (0-0.5); Absolute Eosinophils 0.1 K/uL (0-0.5); Absolute Lymphocytes (CBC) 1.1 K/uL (0.7-4.9); Absolute Monocytes 0.6 K/uL (0.1-1.3); Absolute Neutrophil 5.4 K/uL (1.8-8.0); Eosinophils % 0.9 % (0-4.4); Hematocrit 24.1 % (36.0-45.0); Hemoglobin 7.8 g/dL (12.0-15.0); Lymphocytes % 15.7 % (15.3-44.8); MCH 27.7 pg (27.0-35.0); MCHC 32.4 g/dL (32.0-36.0); MCV 85.3 fL (80-100); MPV 7.3 fL (7.6-11.3); Neutrophils % 74.4 % (41.7-73.7); Platelets 510 thou/uL (152-406); RBC Red Blood Cell Count 2.83 M/uL (3.86-4.86); Red Cell Distribution Width 18.3 % (12.1-15.2)
[2024-01-28 06:31] LABS: Albumin 1.7 g/dL (3.4-5.0); Anion Gap 5.8 mEq/L (5.0-15.0); BUN Blood Urea Nitrogen 13 mg/dL (7-18); Bicarbonate 30 mEq/L (21-32); Glucose Level 131 mg/dL (74-106); Magnesium 1.8 mg/dL (1.6-2.4); Potassium 3.8 mEq/L (3.5-5.1); Prealbumin 12.2 mg/dL (20-40); Sodium Level 131 mEq/L (136-145)
[2024-01-28 06:37] LABS: Glomerular Filtration Rate 132 ml/min (=/>90)
[2024-01-28] MEDS ORDERED: APIXABAN 5 MG TABLET PO SCH (08:00)
[2024-01-28] MEDS: [UNRECOGNIZED DRUG - OTHER] IV SCH ×2 (10:28→17:00)
[2024-01-28] MEDS: AA 4.25 %/D5W/ELECTROLYTES 2,000 ML with MULTIVITAMINS INJ 10 ML IV SCH (16:59)
[2024-01-29 05:53] LABS: Absolute Basophils 0.1 K/uL (0-0.5); Absolute Eosinophils 0.1 K/uL (0-0.5); Absolute Lymphocytes (CBC) 1.4 K/uL (0.7-4.9); Absolute Monocytes 0.9 K/uL (0.1-1.3); Absolute Neutrophil 5.8 K/uL (1.8-8.0); Basophils % 0.6 % (0-1.3); Eosinophils % 0.9 % (0-4.4); Hematocrit 21.7 % (36.0-45.0); Hemoglobin 7.3 g/dL (12.0-15.0); Lymphocytes % 16.9 % (15.3-44.8); MCH 28.4 pg (27.0-35.0); MCHC 33.4 g/dL (32.0-36.0); MCV 85.1 fL (80-100); MPV 7.1 fL (7.6-11.3); Monocytes % 10.9 % (3.3-12.3); Neutrophils % 70.7 % (41.7-73.7); Nucleated Red Blood Cells % 0.1 % (0-0); Platelets 582 thou/uL (152-406); RBC Red Blood Cell Count 2.55 M/uL (3.86-4.86); Red Cell Distribution Width 18.6 % (12.1-15.2)
[2024-01-29 06:05] LABS: Anion Gap 7.8 mEq/L (5.0-15.0); Potassium 3.8 mEq/L (3.5-5.1)
[2024-01-29] MEDS: PANTOPRAZOLE 40MG TABLET PO SCH (07:13)
[2024-01-29] MEDS: HYDROCODONE/APAP 5/325 MG TAB PO PRN (09:28)
[2024-01-29] MEDS: GLUCERNA SHAKE 237 ML CAN PO SCH (09:29)
[2024-01-29] MEDS: SCOPOLAMINE HYDROBROMIDE PATCH TD SCH (10:04)
[2024-01-29] MEDS: FERROUS SULFATE 325 MG TAB PO SCH (11:53)
[2024-01-29] MEDS: GABAPENTIN 300 MG CAP PO SCH (11:53)
[2024-01-29] MEDS: FE SULF/FA/VIT B COMP & C TAB PO SCH (11:54)
[2024-01-29] MEDS: ONDANSETRON 4 MG (ODT) TAB PO PRN (13:38)
[2024-01-29] MEDS: CEFTOLOZANE IV SCH (17:30)
[2024-01-29] MEDS: AA 4.25 %/D5W/ELECTROLYTES 2,000 ML, Lipids 20% 250 ML with MULTIVITAMINS INJ 10 ML IV SCH (17:30)
[2024-01-29] MEDS: TAZOBACTAM IV SCH (17:30)
[2024-01-29] MEDS: SODIUM CHLORIDE IV SCH (17:30)
[2024-01-29] MEDS: ENSURE MAX PROTEIN 330 ML LIQUID PO SCH (20:00)
[2024-01-29] MEDS: TRAMADOL HCL 50 MG TAB PO PRN (20:08)
[2024-01-29] MEDS: MAGNESIUM OXIDE 400 MG TAB PO SCH (20:09)
[2024-01-29] MEDS ORDERED: NA CHLORIDE 0.9% 250 ML ONE (20:28)
--- NOTE | 2024-01-30 02:48 | PN ---
Date of Progress Note: 01/29/2024 Time Of Service: 1:10 p.m. Subjective: Ms. Hernandez is resting comfortably in room. No new complaints. Pain is moderate in the s houlders. Pain patches are on both sides. There is diffuse weakness more proximal than distal in th e upper extremities. 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 She did receive extended antibiotics, including cefepime and Zerbaxa. Objective: She denies current fevers or chills. There are mild myalgias and arthralgias, especially in the shoulders. She denies any rash, any psychiatric complaints. No active gastrointestinal or g enitourinary issues. Moderate pain, for which pain medications have been adjusted. Physical Examination: Vital Signs: Blood pressure 131/58, pulse up to 102, respiratory rate is 16 to 18, temperature 96.9, oxygen saturation 97%. Weight 175 pounds, height 4 feet 11 inches, BMI 35.3. General: Ms. Hernandez is resting comfortably in bed in between therapy sessions. HEENT: She is normocephalic, atraumatic. Sclerae anicteric. Oropharynx moist. Neck: Supple. Chest: Clear. Heart: Regular. Extremities: No significant edema, cyanosis, or clubbing. She does have bilateral shoulder pain as she mobilizes especially with a wheelchair. Laboratory Studies: White blood cell count is 8.1; hemoglobin down to 7.3 from 7.8 yesterday; platel ets are 582, likely reactive. It was elevated from 510, yesterday. Sodium 134, potassium 3.8, chlor ting 102, carbon dioxide 28, BUN 13, creatinine 0.28, glucose ranged from 111 to 128. Calcium 8.3, ma gnesium 1.8, albumin 1.7, prealbumin 12.2. Her urinalysis shows trace ketones, 25 esterase, trace pr otein, otherwise unremarkable. X-ray/imaging: No new x-rays or imaging. Current Medications: She is receiving her TPN with the fat emulsion intravenously with multivitamins . Agreed also to Clinimix 4.25/5% solution and bolused at 83 mL an hour. She has [place] 5/325 every 4 hours as needed for severe pain, Eliquis 5 mg twice daily for DVT prophylaxis and stroke risk reduc tion, Flexeril 10 mg 3 times daily, ferrous sulfate 325 mg daily, gabapentin 300 mg twice daily, lido ivonne patch to apply topically daily, Zyvox 600 mg twice daily, magnesium oxide 400 mg twice daily, F lagyl 500 mg 3 times daily, HemocytePlus with breakfast, Zofran 4 mg every 4 hours as needed, Protoni x 40 mg twice daily, Ensure Max Protein 330 mL twice daily, tramadol 50 mg every 6 hours as needed, a nd Zerbaxa 1.5 g 33.3 mL/hour every 8 hours having a total of 100 mL. Progress Made With Physical, Occupational, And Speech Therapy: With physical therapy today, she perf orms nukjoz-ub-ssb transfers. Maximum assistance for truncal assistance. Iya-xl-vfhev transfers wit h contact guard to standby assistance. Once upright, she was able to ambulate 250 feet with contact guard assistance using a rolling walker. She did another 120 feet with contact guard without an assi stive device. She was not ambulating with an assistive device previously and would like to go home w ithout the need for an assistive device. She was able to go up and down 3 steps and descend 2 steps with right-sided handrail when ascending and left-sided handrail when descending. Assessment: Ms. Hernandez is a 53-year-old patient, admitted to the inpatient rehabilitation unit with a diagnosis of critical illness myopathy. She has decreased mobility, decreased physical functioning. She had a prolonged ICU stay with fever, received IV antibiotics and she is on TPN nutrition. She has moderate pain. She has high risk of stroke and deep vein thrombosis. As stated, there is modera te to significant anemia and will have a repeat blood test for hemoglobin and may give a unit of bloo d if hemoglobin is less than 7; currently 7.3. Prior to coming into the hospital, she did receive 1 unit for low hemoglobin. She has iron, ferrous sulfate. She currently has significant reflux as the nurse did report and per the patient, and she will receive Mylanta and Tums. She has Protonix as we ll on board. As noted, she is on antibiotics that will continue. Plan: 1.Continue with physical, occupational, and speech therapy. 2.Continue with all medications as noted above. 3.We will follow hemoglobin and hematocrit in the morning and will transfuse as appropriate. If nee d be, we will do imaging, including CT scan of the abdomen and pelvis to rule out any bleeding if her hemoglobin is dropping. She has no obvious blood in any external areas. CLAUDE/MODDarrell Voice ID: [id number] Report ID: [id number]
[2024-01-30 03:13] LABS: Hemoglobin 10.3 g/dL (12.0-15.0)
[2024-01-30] MEDS: LIDOCAINE 4% PATCH TOP SCH (08:27)
[2024-01-30] MEDS ORDERED: FENTANYL 25 MCG/PATCH TD SCH (09:00)
[2024-01-30] MEDS: AA 4.25 %/D5W/ELECTROLYTES 2,000 ML IV SCH (17:20)
--- NOTE | 2024-01-31 02:15 | PN ---
Date of Progress Note: 01/30/2024 Subjective: Ms. Hernandez is resting comfortably. She is in no significant distress. She is happy so f ar with therapy. Still has significant difficulty with ability to manage nutrition. She has sourav cavazos nutrition on board working to improve to a thickened liquid diet with chopped and minced meat cherry t is under the direction of speech pathology. Subjective: Mild myalgia, arthralgias. No fevers, chills. No rash. No psychiatric issues. No iss ues with genitourinary, gastrointestinal issues. It was noted previously in moderate pain which is i mproving with adjustment of medication. Physical Examination: Vital Signs: Blood pressure 139/71, pulse 97, respiratory rate 18, temperature 97.8, oxygen saturati on 96%. General: Ms. Hernandez is resting in bed. Family at the bedside. HEENT: She is normocephalic, atraumatic. Sclerae anicteric. Oropharynx pink, moist. Neck: Supple. Chest: Clear. Heart: Regular. Extremities: She has proximal lower and upper extremity weakness due to her afferent loop syndrome r elated debility. Medications: Medications have been reviewed. She does have a change in her nutritional supplementat ion per the dietitian and that is noted with the Clinimix E 4.25-5% solution of which she is receivin g at a rate of 83 mL an hour on Monday, Monday, , Monday, and for Monday, Monday, y receiving the electrolyte fat emulsion with multivitamin at 83 mL an hour. She has Eliquis 5 mg tw ice daily, [place] 5/325 every 4 hours as needed, Flexeril 10 mg 3 times daily, ferrous sulfate 325 mg daily, gabapentin 300 mg twice daily which was adjusted to help manage her neuropathic pain, lidocain e patch apply 2 topically daily, she has Zyvox 600 mg twice daily, magnesium oxide 400 mg twice daily , Flagyl 500 mg 3 times daily, Hemocyte-Plus 1 tablet with breakfast, centrum Silver 1 tablet daily, Zofran 4 mg every 4 hours as needed, Protonix 40 mg twice daily, Ensure Max 330 twice lj y, tramadol 50 mg every 6 hours as needed, and Zerbaxa 1.5 g. She has 0.9 normal saline , is receivi ng at 100 cc at 33.33 mL an hour every 8 hours. No new x-rays or imaging. Laboratory Studies: No new laboratory studies except today hemoglobin is now 10.3, hematocrit 31.0. She did have a unit of blood transfused due to low hemoglobin. Today, blood sugars range from 104-142. Progress Made With Physical, Occupational Therapy: Today with physical therapy, she did report to e therapist, she was not feeling very well with therapy. She did work on seated exercises, toe raise s, heel raises, hip flexion, hip extension, abductor, adductor exercises. She was able to, however, later on ambulate 250 feet with contact guard assistance with a rolling walker, then did another 120 feet twice with contact guard assist without an assistive device. She was able to go up and down 10 steps twice with bilateral handrails with contact guard assistance. Wvxnd-yu-nhotx transfers done wi contact guard assistance. With occupational therapy, she focused on donning and doffing socks, de monstrated that and was able to complete tasks with minimum assistance using a shoehorn sh oes on with independence. Toileting, she is able to wash her buttocks, but did have limited trunk ro tation, needed assistance to wipe thoroughly. Independent managing clothes and toileting. Ms. Hernandez is making good progress with her physical and occupational therapy. She is working on triston ng adjustments and is working with speech to help with swallowing and to improve her capacity to retu rn to an oral diet. Assessment: Ms. Hernandez is a 53-year-old patient in rehabilitation unit with critical illness myopathy . She has afferent loop syndrome. She has parenteral nutrition. She has significant dysarthria, dy sphagia. She is continuing with IV antibiotics and TPN as noted. The involved with Infec tious Disease. She did have a unit of blood, increased her hemoglobin significantly. She has iron a nd in terms of ferrous sulfate and Hemocyte-Plus on board. She has reflux medication which has impro kaya her reflux symptoms. Plan: 1.She will continue with physical, occupational, and speech therapy. 2.Continue with all medications as noted above for comorbid conditions. 3.She does have the need for speech and speech therapy will be involved in helping her with swallowi ng, improving her diet, and helping her to return to her oral diet. Comorbidities That Are Impacting Rehabilitation: Currently she has a parenteral nutrition that is st ill ongoing. The goal is to be able to transfer her back to oral diet prior to her being able to be ready for discharge and she will continue therapy via Home Health, this is the plan. AROLDO Voice ID: [id number] Report ID: [id number]
[2024-01-31] MEDS: MULTIVITAMIN TAB PO SCH (07:41)
[2024-02-01 05:25] LABS: Absolute Eosinophils 0.1 K/uL (0-0.5); Absolute Monocytes 0.9 K/uL (0.1-1.3); Absolute Neutrophil 5.2 K/uL (1.8-8.0); Basophils % 0.5 % (0-1.3); Eosinophils % 1.5 % (0-4.4); Hematocrit 25.5 % (36.0-45.0); Hemoglobin 8.6 g/dL (12.0-15.0); MCH 29.2 pg (27.0-35.0); MCHC 33.6 g/dL (32.0-36.0); MCV 86.8 fL (80-100); MPV 6.9 fL (7.6-11.3); Monocytes % 12.1 % (3.3-12.3); Neutrophils % 71.9 % (41.7-73.7); Nucleated Red Blood Cells % 0.2 % (0-0); Platelets 554 thou/uL (152-406); RBC Red Blood Cell Count 2.93 M/uL (3.86-4.86); Red Cell Distribution Width 18.8 % (12.1-15.2)
[2024-02-01 05:43] LABS: Albumin 1.9 g/dL (3.4-5.0); Anion Gap 7.9 mEq/L (5.0-15.0); Magnesium 1.9 mg/dL (1.6-2.4); Potassium 3.9 mEq/L (3.5-5.1); Prealbumin 13.6 mg/dL (20-40)
--- NOTE | 2024-02-01 14:52 | RAD REPORT ---
EXAMINATION: CT ABDOMEN AND PELVIS UROGRAM WITHOUT AND WITH CONTRAST CLINICAL INDICATION: R/O Abscess TECHNIQUE: CT abdomen and pelvis was performed, before and after the administration of IV contrast, a s per department protocol. Axial, sagittal and coronal reconstructions were obtained. One or more of the following dose reduction techniques were used: Automated exposure control, adjustment of the m A and/or kV according to patient size, and/or iterative reconstruction. Unless otherwise specified, incidental findings do not require dedicated imaging follow-up. COMPARISON: 12/26/2023 FINDINGS: LOWER CHEST: Moderate opacities in both lung bases likely atelectasis. LIVER: Normal in size and contour. No focal lesion. No intra or extrahepatic biliary tree dilatation suspected. Cholecystectomy. PANCREAS: No mass, ductal dilation, or neptali-pancreatic fluid. SPLEEN: Normal size. No focal lesion. ADRENALS: Normal; no mass. KIDNEYS AND URETERS: Normal size and contour. No hydronephrosis or hydroureter. URINARY BLADDER: Normal in appearance. No suspicious mass or stone. GASTROINTESTINAL TRACT: No evidence of bowel obstruction, free air, significant free fluid or abscess . Postoperative changes are seen in the left upper quadrant. No distention of bowel in this region. APPENDIX: Normal appendix. LYMPH NODES: No lymphadenopathy. REPRODUCTIVE ORGANS: No pathologic process. MUSCULOSKELETAL: No acute or suspicious osseous abnormality. ADDITIONAL FINDINGS: Fluid and air collection is seen anterior abdominal wall subcutaneous fat superf icial to the anterior abdominal fascia measuring 4.7 x 2.0 cm. This collection is of indeterminate sterility. Collection is best visualized on image 66/105. IMPRESSION: Triangular-shaped midline subcutaneous air and fluid collection superficial to the anterior abdominal wall fascia is of indeterminate sterility. Postsurgical changes involving the stomach and small bowel in the left upper quadrant is noted withou t evidence of obstruction or abscess. Mild inflammatory changes in the omental fat are present.
--- NOTE | 2024-02-01 16:17 | CON ---
History Of Present Illness: This is a 53-year-old female I was consulted for evaluation of antibioti cs and abdominal abscess management. The patient denies any headache, nausea, vomiting, chest pain. The patient is having abdominal discomfort for which she is on pain medication. Currently, on Zerba xa and Flagyl for multidrug-resistant pseudomonas infection. The patient denies any other problems a t this time. No diarrhea. Had a bowel movement earlier today. The patient had gastric bypass surge ry, which got complicated with abdominal abscess and patient had a prolonged ICU hospitalization. YARY drains have been removed before transferring patient to rehab facility for total rehab. The patient is also currently getting TPN. Past Medical History: Cholecystectomy, appendectomy, gastric bypass, morbid obesity. Social History: Nonsmoker, nondrinker. Family History: Noncontributory. Medications: Zerbaxa, TPN, Flagyl, Zyvox. See MAR for other medications. Allergies: PENICILLIN. Review of Systems: 10-point review was performed. Physical Examination: General: This is a 53-year-old female, lying in bed, not in any acute cardiopulmonary distress. Vital Signs: Temperature 97, pulse 95, respiration 18, blood pressure 136/67. HEENT: Unremarkable. Neck: Supple. Lungs: Basal crackles. Heart: S1, S2. Regular. Abdomen: Soft. Bowel sounds present. Tenderness in the right lower quadrant noted. Extremities: No edema. Laboratory Data: Shows WBC 7.3, hemoglobin 8.6, platelets 556. Chemistry shows BUN of 14, creatinin e 0.2. Urine cultures, no growth. Assessment And Plan: This is a 53-year-old female with significant history of gastric bypass and abd ominal abscess formation after complication from surgery. The patient had a prolonged ICU admission. Currently on Zerbaxa, Flagyl, and linezolid. Continue current treatment as advised by Infectious D yina and then can be switched to oral antibiotic after CT scan is showing no signs of abscess. Rec ommend to get a CT scan with oral contrast. Monitor signs of infection with WBC and fever trend. Thank you for consult. NF/MODL Voice ID: [id number] Report ID: [id number]
[2024-02-01] MEDS: AA 4.25 %/D5W/ELECTROLYTES 2,000 ML IV SCH (17:30)
--- NOTE | 2024-02-01 21:32 | PN ---
Date of Progress Note: 02/01/2024 Time Of Service: 1:00 p.m. Subjective: Ms. Hernandez is resting comfortably in bed. Said pain is better. She is interested in ora l feeding and would like the IV feedings to be discontinued. This was discussed with Dr. Beltran and the bag hanger and the plan is to decrease by half the parental feeding. The patient said she does not like hospital food, but will have her family bring 3 meals a day and will be documented by the [facility] staff. Otherwise, she has no new complaints. Review of Systems: No significant fevers, nausea, vomiting, myalgias, arthralgias, or rash. Physical Examination: Vital Signs: Blood pressure 136/67, pulse 93, respiratory rate 17, temperature 97.2, oxygen saturati on 93%. Weight 175 pounds, height 4 feet 11 inches, BMI 35.3. General: Ms. Idania Hernandez is resting comfortably in her bed. HEENT: She is normocephalic, atraumatic. Sclerae anicteric. Oropharynx is moist. Neck: Supple. Chest: Clear. Heart: Regular. Extremities: Show no significant edema or cyanosis. She does have the parenteral nutrition ongoing, was decreased by 1/2 and her feedings will be now mos tly orally. She will have the bag hanger provide information with recommendations for a more appro priate oral diet to maintain good nutrition. She will have repeat pre-albumin and may be able to com pletely stop differential nutrition and switch to oral feedings. Laboratory Studies: White blood cell count 7.3, hemoglobin 8.6, platelets 554. Sodium 135, potassiu m 3.9, chloride 103, carbon dioxide 28, BUN 14, creatinine 0.25. Her glucose ranged from 94 to 125, calcium 8.5. Magnesium 1.9. Albumin 1.9, prealbumin 13.6. Note, her IV antibiotics, which are continuing will be switched over to Flagyl and levofloxacin to co ntinue for 14 days. She does have antibiotics for multidrug resistant bacteria. She continues Eliqu is 5 mg twice daily for a DVT. She continues [place] 7.5/325 every 4 hours for significant pain. Jimmy n, continue with parenteral nutrition. She has Flexeril 10 mg 3 times daily, ferrous sulfate 325 mg daily, gabapentin 300 mg twice daily, lidocaine patch apply topically to daily Zyvox 600 mg twice jay ly, magnesium oxide 400 mg twice daily. She will be on the Flagyl 500 mg 3 times daily, Centrum Silv er 1 tablet daily, Hemocyte Plus 1 tablet daily, Zofran 4 mg every 4 hours as needed, Protonix 40 mg twice daily, Ensure Max 330 mg twice daily, tramadol 50 mg every 6 hours, and Zerbaxa 1.5 g every 8 h ours intravenously. Progress Made With Physical And Occupational Therapy: Today with physical therapy, she ambulated 135 feet twice with a rolling walker and contact guard assistance. With occupational therapy, performed [id number]-[id number]-[id number] transfers, standby assistance; supine to sit transfers, supervision; supervision for ba thing, upper and lower body dressing, donning and doffing of footwear. She is not followed by Speech . She is advancing her diet has no issues with swallowing, but she did have a bedside swallow evalua tion was found to be intact. She did not require any further treatment by Speech Therapy. Assessment And Plan: Ms. Hernandez is a 53-year-old patient in the rehabilitation unit with afferent loo p syndrome. She is on multidrug resistant antibiotics. She has some issues. She is actually receiv ing parenteral nutrition, but is switching over to oral feeding as she is able to tolerate food. She reports not liking hospital food and family planned to bring 3 meals per day and she is able to tole rate. She will continue all comorbid condition medications. Plan: Continue with physical and occupational therapy 3 hours a day, 5 of 7 days a week. She will c ontinue with Zerbaxa 1.5 g every 8 hours IV, tramadol as scheduled daily and will be p.r.n. as well. Continue Ensure Max. Continue Zofran, Centrum, Hemocyte, Flagyl, Zyvox, lidocaine patch, gabapentin , ferrous sulfate, Flexeril, Eliquis, [place], and cut the parenteral . Comorbidities That Are Impacting Rehabilitation: She is on parenteral nutrition and multiple IV anti biotics. IV antibiotic should be completed prior to discharge. She will be also off parenteral nutrition, and on the oral feeding gatito or to discharge. CLAUDE/CARA Voice ID: [id number] Report ID: [id number]
[2024-02-02 05:19] LABS: Absolute Eosinophils 0.1 K/uL (0-0.5); Absolute Lymphocytes (CBC) 0.9 K/uL (0.7-4.9); Absolute Monocytes 0.7 K/uL (0.1-1.3); Absolute Neutrophil 5.6 K/uL (1.8-8.0); Basophils % 0.4 % (0-1.3); Eosinophils % 1.1 % (0-4.4); Hematocrit 25.4 % (36.0-45.0); Hemoglobin 8.5 g/dL (12.0-15.0); Lymphocytes % 12.6 % (15.3-44.8); MCH 29.2 pg (27.0-35.0); MCHC 33.6 g/dL (32.0-36.0); MCV 86.9 fL (80-100); MPV 6.9 fL (7.6-11.3); Monocytes % 9.6 % (3.3-12.3); Neutrophils % 76.3 % (41.7-73.7); Nucleated Red Blood Cells % 0.1 % (0-0); Platelets 540 thou/uL (152-406); RBC Red Blood Cell Count 2.92 M/uL (3.86-4.86); Red Cell Distribution Width 18.2 % (12.1-15.2)
[2024-02-02] MEDS: AA 4.25 %/D5W/ELECTROLYTES 2,000 ML, Lipids 20% 250 ML with MULTIVITAMINS INJ 10 ML IV SCH (17:42)
[2024-02-02] MEDS ORDERED: OPTHALMIC OPTH SCH (21:00)
[2024-02-02] MEDS ORDERED: KETOROLAC TROMETHAMINE 0.5% OPTH SCH (21:00)
--- NOTE | 2024-02-02 22:06 | PN ---
Subjective: The patient is walking with the help of physical therapy. Denies any headache, nausea, vomiting, chest pain, abdominal pain, constipation, or diarrhea. Objective: Vital Signs: Temperature 97, pulse 90, respirations 17, blood pressure 124/68. Lungs: Basal crackles. Heart: S1, S2. Regular. Abdomen: Soft. Bowel sounds present. Extremities: No edema. Laboratory Data: Shows WBC 7.3, hemoglobin 8.5, platelets are 540. Assessment And Plan: Status post gastric bypass surgery, abdominal abscess. CT scan is negative for any residual abscesses. The patient is suppose to finish her IV antibiotic therapy by February 02t h to be switched to Levaquin and Flagyl p.o., which should be continued until the patient sees her meade rgeon. Continue supportive care and wound care. Monitor signs of infection with WBC and fever trend . NF/MODL Voice ID: [id number] Report ID: [id number]
--- NOTE | 2024-02-02 22:06 | PN ---
Date of Progress Note: 02/02/2024 Subjective: Ms. Hernandez is resting in bed with family at bedside. She is doing better and says her pa in is better managed. She is able to ambulate more. She is eating food brought by family as her TPN has been cut back to half the rate. She has no new complaints. Objective: No fevers, chills. No nausea, vomiting. No significant myalgias, arthralgias, or rash. Physical Examination: Vital Signs: Blood pressure 124/68, pulse of 90, respiratory rate 16, temperature 97.1, oxygen satur ation 95%. General: Ms. Hernandez is resting comfortably in bed. Family at bedside. HEENT: She is normocephalic, atraumatic. Sclerae anicteric. Oropharynx pink and moist. Neck: Supple. Chest: Clear. Heart: Regular. She currently has hydration going instead of TPN. Laboratory Studies: White blood cell count 7.3, hemoglobin 8.5, platelets 540. Sodium 135, potassiu m 3.9, chloride 103, carbon dioxide 28, BUN 14, creatinine 0.25, glucose ranged from 94 to 125, calci um 8.5, magnesium 1.9, albumin 1.9, prealbumin 13.6. X-ray/imaging: No new x-rays or imaging. Medications: Medications have been reviewed and are unchanged. She will have Flagyl stopped on 01/07 and is currently 500 mg 3 times daily and the Zerbaxa which is for multidrug-resistant bacteria at 1.5 g every 8 hours. We will go from 01/29/2024 to 02/03/2024. She will be going home on oral antib iotics instead of IV antibiotics. Progress Made With Physical And Occupational Therapy: Today with physical therapy, she was able to a mbulate 135 feet twice, 250 feet twice, and 500 feet with standby assistance. She ascended and desce nded 15 steps with bilateral handrails with standby assistance. Cwahqb-cc-tbg transfers done indepen dently. With her occupational therapy, wtqdhh-[id number]-hgc transfers again done independently. Supervisio n for bathing, lower body dressing, donning and doffing of footwear. She is not receiving speech the rapy as her swallowing is independent and she is working on oral intake given her afferent loop syndr ome, where she is now managing oral intake without nausea, vomiting. Ms. Hernandez is a 53-year-old patient in rehabilitation unit with afferent loop syndrome. She has decre ased mobility, decreased physical functioning, on parenteral nutrition, abdominal pain, muscle spasms , neuropathic pain. Plan: 1.She will have continued physical and occupational therapy for 3 hours a day, 5 of 7 days. 2.Continue with parenteral nutrition, [place] for pain, Flexeril for muscle spasms, Eliquis for stroke and DVT risk reduction, gabapentin for neuropathic pain, lidocaine topically. Continue Flagyl orall y, Hemocyte Plus for anemia, Protonix for GE reflux, Zerbaxa 1.5 g every 24 hours, IV antibiotics for the multidrug-resistant bacteria. Comorbidities That Are Impacting Rehabilitation: Currently, she is on TPN and IV antibiotics. Those are being cut back and will be stopped before she is discharged home on oral antibiotics. CLAUDE/CARA Voice ID: [id number] Report ID: [id number]
[2024-02-03] MEDS ORDERED: TIMOLOL 0.5% OPTH SCH (08:00)
[2024-02-03] MEDS: ONDANSETRON 4 MG (ODT) TAB PO ONE (20:00)
[2024-02-03] MEDS: PROMETHAZINE 25 MG TABLET PO ONE (21:54)
--- NOTE | 2024-02-04 19:44 | PN ---
Subjective: Patient lying in bed, somnolent, not in any acute distress. Family by the bedside. Objective: Vital Signs: Reviewed. Lungs: Basal crackles. Heart: S1, S2. Regular. Abdomen: Soft. Bowel sounds present. Mild tenderness on the right lower quadrant. Extremity: No edema. Laboratory Data: Shows WBC 7.3, hemoglobin 8.5, platelets are 540. Chemistry shows creatinine of 0. 25. Assessment And Plan: Status post gastric bypass surgery. Abdominal abscess, it is resolving. Patie nt doing better and continued to be on TPN. Recommend to continue Levaquin and Flagyl for 7 days p.o. Continue supportive care and wound care. Monitor signs of infection with WBC and fever trends. NF/MODL Voice ID: [id number] Report ID: [id number]
[2024-02-04] MEDS: CYCLOBENZAPRINE 10 MG TAB PO PRN (21:30)
[2024-02-05] MEDS: levoFLOXacin 500 MG TAB PO SCH ×2 (08:00→11:56)
[2024-02-05] MEDS: BUPROPION HCL XL 150 MG TAB PO SCH (08:12)
[2024-02-05] MEDS: ONDANSETRON 4 MG (ODT) TAB PO PRN (08:12)
[2024-02-05] MEDS: metroNIDAZOLE 500 MG TABLET PO SCH (09:10)
--- NOTE | 2024-02-05 21:14 | PN ---
Date of Progress Note: 02/05/2024 Time Of Service: 1:10 p.m. Subjective: Ms. Hernandez is resting well, happy with her therapy and doing very well. Her progress dis cussed with family and she is making great progress overall. Review of Systems: No new complaints. On exam, patient is having a shower. Physical Examination: Vital Signs: Blood pressure 157/75, pulse 93, respiratory rate 17, temperature 97.3. Oxygen saturati on 95%. General: Ms. Hernandez has no new deficits, doing well. Her parental feeding is now discontinued, and s he is on oral feeding. Managing feeds very well with no issues and no focal deficits. Laboratory Studies: Blood sugars ranged from 102 to 104. X-ray/imaging: No new x-rays or imaging. Medications: Dr. Beltran on ID service recommended she continue Flagyl 500 mg 3 times daily for 7 day s and levofloxacin 500 mg daily for 7 more days. She is to be discharged home and will continue ther apy via Home Health. Progress Made With Physical And Occupational Therapy: Today, with physical therapy, she ambulated 25 0 feet with a rolling walker independently, up and down 12 steps done so with supervision. Also, amb ulated on the grass outside 10 feet independently, did another 80 feet independently without an mercedez tive device. Also, she ambulated another 300 feet with a rolling walker independently. With occupat ional therapy, independent with bed mobility and ambulating around the room transfers, doing very wel l. Toilet hygiene, bathing, grooming, upper and lower body dressing, footwear, all independent. Ms. Hernandez is making excellent progress with her recovery and on TPN now and on oral feeding. [facility] nt physical and occupational therapy progress. Assessment And Plan: Ms. Hernandez is a 53-year-old patient is in the rehabilitation unit with afferent loop syndrome, status post surgical repair. She has improvement in her mobility and her physical fun ctioning. She has the abdominal pain, muscle spasms, neuropathic pain. Those are addressed. She do es have the multidrug-resistant bacteria treated now with Flagyl and levofloxacin as recommended per Dr. Beltran of the ID service. The plan again continue with physical and occupational therapy. Next, continue all medications including for pain, muscle spasms, stroke risk reduction, DVT risk reductio n. Continue the multidrug resistant bacteria treatment and she is to be discharged home in the [facility] to continue therapy via Home Health. AROLDO Voice ID: [id number] Report ID: [id number]
[2024-02-06 07:26] VITALS: BP 136/76; TEMP 96.9
--- NOTE | 2024-02-06 20:18 | PN ---
Subjective: Patient lying in bed. No new acute event. Chart reviewed. Being discharged today. Fe eling much better. Abdominal wounds noted. Objective: Vital Signs: Reviewed. Lungs: Clear to auscultation. Heart: S1, S2. Regular. Abdomen: Soft. Bowel sounds present. Extremity: No edema. Assessment And Plan: Status post gastric bypass surgery. Abdominal abscess, resolved. Continue ant ibiotic and supportive care. Recommended to apply Betadine to the abdominal wound site and monitor f or signs of infection. We will follow the patient as needed. Follow up with surgical team and [facility]. NF/MODL Voice ID: [id number] Report ID: [id number]
== END 2024-02-06 11:00 | disposition home health service (06) | DRG 92 ==
LOC: 5TH 01-27 14:30
PROVIDERS: ADMIT Psychiatry & Neurology Neurology with Special Qualifications in Child Neurology; ATTEND Psychiatry & Neurology Neurology with Special Qualifications in Child Neurology
PROC: 30233P1 Transfusion of Nonautologous Frozen Red Cells into Peripheral Vein, Percutaneous Approach (ICD-10-PCS; principal; 2024-01-29)
DX: G72.81 Critical illness myopathy (principal); E44.0 Moderate protein-calorie malnutrition; K68.11 Postprocedural retroperitoneal abscess; K91.89 Other postprocedural complications and disorders of digestive system; E66.9 Obesity, unspecified; R47.1 Dysarthria and anarthria; R13.10 Dysphagia, unspecified; T81.43XD Infection following a procedure, organ and space surgical site, subsequent encounter; Z98.84 Bariatric surgery status; D64.9 Anemia, unspecified; K21.9 Gastro-esophageal reflux disease without esophagitis
CPT/HCPCS: 36415; 74178; 80048; 81001; 82040; 82947; 83735; 84134; 85014; 85018; 85025; 86850; 86900; 86901; 86920; 87086; 87088; 92610; 94010; 97110; 97112; 97116; 97161; 97165; 97530; 97542; J2001; J2405; J2470; J7050; P9016; Q0162; Q0169; Q9967